=== PATIENT | male | born 1960 | race Two or more races ===

== ENCOUNTER 2017-07-25 03:36 | Emergency (ER) | payer SELFPAY ==
[~2017-07-25] VITALS: Ht 167.6 cm; Wt 81.6 kg
[~2017-07-25 03:36] MED LIST: CEPHALEXIN500 MG ORAL; IBUPROFEN600 MG ORAL
[2017-07-25 04:02] VITALS: BP 161/91
[2017-07-25] MEDS ORDERED: ACETAMINOPHEN-1 EAC1 ORAL (04:38)
[2017-07-25 04:48] VITALS: BP 161/91
--- NOTE | 2017-07-25 05:07 | Emergency Room Report ---
History of Present Illness General Chief Complaint: Pain Source: Patient Present Illness HPI 57-year-old male presents ED complaining of pain to right ring finger. States that last night he was trying to piece together to metal pipes and in the process banged his finger against a pipe. Patient notes pain and purple discoloration to the right fourth finger. Pain as throbbing, 10 out of 10, nonradiating. Denies any other injuries. No other aggravating factors. Denies any other associated symptoms Allergies: Coded Allergies: No Known Allergies (Unverified , 07/30/16) Patient History Past Medical History: DM Past Surgical History: none Pertinent Family History: none Social History: Denies: smoking, alcohol use, drug use Immunizations: UTD Reviewed Nursing Documentation: PMH: Agreed, PSxH: Agreed Nursing Documentation-PMH Hx Diabetes: Yes Review of Systems All Other Systems: negative except mentioned in HPI Physical Exam Vital Signs Date Time Temp Pulse Resp B/P (MAP) Pulse Ox O2 Delivery O2 Flow Rate FiO2 07/25/17 03:48 97.9 75 19 161/91 99 Room Air Sp02 EP Interpretation: reviewed, normal General Appearance: alert, GCS 15, non-toxic, mild distress Head: normocephalic Eyes: bilateral eye normal inspection, bilateral eye PERRL ENT: normal ENT inspection Neck: normal inspection Respiratory: normal inspection Cardiovascular #1: normal inspection Gastrointestinal: normal inspection Rectal: deferred Genitourinary: no CVA tenderness Musculoskeletal: normal inspection, tender - subungual hematoma R 4th finger Neurologic: alert, oriented x3, responsive, motor strength/tone normal, sensory intact, speech normal Psychiatric: normal inspection Skin: normal inspection Lymphatic: normal inspection Medical Decision Making Diagnostic Impression: Primary Impression: Subungual hematoma ER Course Hospital Course 57-year-old male presents to ED with swelling and bruising to the distal aspect of R ring finger Differential-contusion, fracture, dislocation, subungual hematoma Clinical course Patient placed on stretcher. After initial history and physical I ordered pain medication and x-rays X-ray show no evidence of fracture Using cautery device I drained the subungual hematoma underneath the nail bed without difficulty. Patient notes immediate relief of pain and pressure. Dressing applied Diagnosis - subungual hematoma Stable and discharged to home with prescription for Tylenol #3. wound Care instructions given. Followup with PMD. Return to ED if any signs of infection develop Other X-Ray Diagnostic Results Other X-Ray Diagnostic Results : X-Ray ordered: R hand # of Views/Limited Vs Complete: 3 View Indication: Pain EP Interpretation: Yes Interpretation: no dislocation, no soft tissue swelling, no fractures Impression: No acute disease Electronically Signed by: Electronically signed by Malachi Barry MD Last Vital Signs Date Time Temp Pulse Resp B/P (MAP) Pulse Ox O2 Delivery O2 Flow Rate FiO2 07/25/17 04:02 97.9 19 161/91 99 Room Air 07/25/17 03:48 75 Status: improved Disposition: HOME, SELF-CARE Condition: Stable Scripts Acetaminophen With Codeine (T#3) (TYLENOL #3 TAB*) Y Tab 1 TAB ORAL Q8H Y for For Pain, #20 TAB Prov: MALACHI BARRY M.D. 07/25/17 Patient Instructions: Subungual Hematoma, [id number] MALACHI BARRY M.D. Jul 25, 2017 05:07
--- NOTE | 2017-07-25 10:33 | Diagnostic Imaging Report ---
Indication: pain Findings: 3 views of the right hand were obtained. There is no fracture or malalignment is identified. The bones are osteopenic. Soft tissue swelling is noted. Impression: No acute findings.
== END 2017-07-25 04:48 | disposition home or self-care (01) ==
LOC: EMR 04:27
DX: S60.141A Contusion of right ring finger with damage to nail, initial encounter (principal); W22.8XXA Striking against or struck by other objects, initial encounter; Y92.89 Other specified places as the place of occurrence of the external cause; E11.9 Type 2 diabetes mellitus without complications
CPT/HCPCS: 99284